=== PATIENT | male | born 1970 | race Caucasian/White ===

== ENCOUNTER 2017-05-09 13:14 | Emergency (ER) | payer OTHER ==
[2017-05-09 14:35] VITALS: BP 132/68
--- NOTE | 2017-05-09 14:41 | UC ---
Throat Pain/Nasal Neel HPI - HPI Summary HPI Summary: per nurses triage: c/o productive cough with yellow/red secretions, lungs hurt, feverish that started yesterday. - History of Current Complaint Chief Complaint: UCRespiratory Stated Complaint: FEVER/CHILLS/COUGH Time Seen by Provider: 05/09/17 14:33 Hx Obtained From: Patient Onset/Duration: Sudden Onset, Lasting Days Severity: Moderate Cough: Nonproductive Associated Signs & Symptoms: Positive: Dysphagia, Wheezing, Sinus Discomfort, Fever - Allergies/Home Medications Allergies/Adverse Reactions: Allergies Allergy/AdvReac Type Severity Reaction Status Date / Time No Known Allergies Allergy Verified 05/09/17 14:28 Home Medications: Home Medications Aspirin Low Dose CHEW TAB* [Aspirin Low Dose TAB*] 81 mg PO DAILY 05/09/17 [ History Confirmed 05/09/17] Diabetic Medication BID 05/09/17 [History] Lisinopril [Lisinopril 40 MG-] 40 mg PO DAILY 05/09/17 [History Confirmed ] Metformin HCl [Glucophage] 1,000 mg PO BID 05/09/17 [History Confirmed 05/09/17] [id number] Ethyl Esters (NF) [Lovaza (NF)] 1 gm PO BID 05/09/17 [History Confirmed 05/09/17] Pravastatin (NF) [Pravachol (NF)] 10 mg PO DAILY 05/09/17 [History Confirmed 11/17] SitaGLIPtin (NF) [Januvia (NF)] 25 mg PO DAILY 05/09/17 [History Confirmed 05/09] PMH/Surg Hx/FS Hx/Imm Hx Previously Healthy: Yes - Surgical History Surgical History: Yes Surgery Procedure, Year, and Place: hernia. foot - Family History Known Family History: Negative: Cardiac Disease, Hypertension - Social History Alcohol Use: Occasionally Substance Use Type: Marijuana Substance Use Comment - Amount & Last Used: occasional use Smoking Status (MU): Heavy Every Day Tobacco Smoker Type: Pipe Amount Used/How Often: 1/2 pack daily Review of Systems Constitutional: Fever, Chills, Fatigue Skin: Negative Eyes: Negative ENT: Sore Throat, Ear Ache, Nasal Discharge Respiratory: Shortness Of Breath, Cough Cardiovascular: Negative Gastrointestinal: Negative Genitourinary: Negative Motor: Negative Neurovascular: Negative Musculoskeletal: Arthralgia, Myalgia Neurological: Headache Is Patient Immunocompromised?: No All Other Systems Reviewed And Are Negative: Yes Physical Exam Vital Signs: Initial Vital Signs Temp 100 F 05/09/17 14:31 Pulse 90 05/09/17 14:31 Resp 20 05/09/17 14:31 BP 132/68 05/09/17 14:31 Pulse Ox 95 05/09/17 14:31 Throat Pain/Nasal Course/Dx - Course Course Of Treatment: hx obtained, exam performed ,meds reviewed, rapid flu obtained. - Differential Dx/Diagnosis Differential Diagnosis/HQI/PQRI: Otitis Media, Pharyngitis, Sinusitis, URI Discharge - Discharge Plan Condition: Stable Disposition: HOME Referrals: Katia Aguila [Primary Care Provider] -
--- NOTE | 2017-05-09 15:07 | UC ---
FLU HPI - HPI Summary HPI Summary: Started yesterday, cough, headaches, chills, bodyaches. Exposed to the flu. - History of Current Complaint Chief Complaint: UCRespiratory Stated Complaint: FEVER/CHILLS/COUGH Time Seen by Provider: 05/09/17 14:33 Hx Obtained From: Patient Onset/Duration: Sudden Onset, Lasting Days - 1, Worse Since - onset Severity Currently: Severe Severity Initially: Mild Associated Signs & Symptoms: Positive: Fever, Cough, Sore Throat, Headache Related Hx: Possible Flu/Infectious Exposure, Smoking - Risk Factors Influenza Risk Factors: Chronic Medical or Immunosuppresive Condition - Diabetes - Allergy/Home Medications Allergies/Adverse Reactions: Allergies Allergy/AdvReac Type Severity Reaction Status Date / Time No Known Allergies Allergy Verified 05/09/17 14:28 Home Medications: Home Medications Aspirin Low Dose CHEW TAB* [Aspirin Low Dose TAB*] 81 mg PO DAILY 05/09/17 [ History Confirmed 05/09/17] Diabetic Medication BID 05/09/17 [History] Lisinopril [Lisinopril 40 MG-] 40 mg PO DAILY 05/09/17 [History Confirmed ] Metformin HCl [Glucophage] 1,000 mg PO BID 05/09/17 [History Confirmed 05/09/17] Uaelv-0-Fmbm Ethyl Esters (NF) [Lovaza (NF)] 1 gm PO BID 05/09/17 [History Confirmed 05/09/17] Pravastatin (NF) [Pravachol (NF)] 10 mg PO DAILY 05/09/17 [History Confirmed 11/17] SitaGLIPtin (NF) [Januvia (NF)] 25 mg PO DAILY 05/09/17 [History Confirmed 05/09] PMH/Surg Hx/FS Hx/Imm Hx Endocrine History: Diabetes, Dyslipidemia Cardiovascular History: Hypertension - Surgical History Surgical History: Yes Surgery Procedure, Year, and Place: hernia. foot - Family History Known Family History: Positive: Cardiac Disease, Hypertension, Diabetes - Social History Occupation: Employed Full-time Lives: With Family Alcohol Use: Occasionally Substance Use Type: Marijuana Substance Use Comment - Amount & Last Used: occasional use Smoking Status (MU): Heavy Every Day Tobacco Smoker Type: Pipe Amount Used/How Often: 1/2 pack daily Review of Systems Constitutional: Fever, Chills Respiratory: Cough Musculoskeletal: Myalgia Neurological: Headache Is Patient Immunocompromised?: No All Other Systems Reviewed And Are Negative: Yes Physical Exam Triage Information Reviewed: Yes Appearance: No Pain Distress, Well-Nourished, Ill-Appearing Vital Signs: Initial Vital Signs Temp 100 F 05/09/17 14:31 Pulse 90 05/09/17 14:31 Resp 20 05/09/17 14:31 BP 132/68 05/09/17 14:31 Pulse Ox 95 05/09/17 14:31 Vital Signs Reviewed: Yes Eyes: Positive: Conjunctiva Inflamed ENT: Positive: Pharynx normal, TMs normal Neck exam: Normal Respiratory: Positive: Lungs clear Cardiovascular Exam: Normal Musculoskeletal Exam: Normal Neurological Exam: Normal Psychological Exam: Normal Skin Exam: Normal Flu Course/Dx - Differential Dx/Diagnosis Differential Diagnosis/HQI/PQRI: Influenza, RSV, Upper Respiratory Infection Provider Diagnoses: Acute Influenza Type A Discharge - Discharge Plan Condition: Stable Disposition: HOME Prescriptions: Oseltamivir CAP* [Tamiflu CAP*] 75 mg PO BID #10 cap Patient Education Materials: Influenza (ED), Oseltamivir (By mouth) Referrals: Katia Aguila [Primary Care Provider] -
== END 2017-05-09 15:31 | disposition home or self-care (01) ==
LOC: UCCORT 13:14
DX: J11.1 Influenza due to unidentified influenza virus with other respiratory manifestations (principal); E11.9 Type 2 diabetes mellitus without complications; Z79.84 Long term (current) use of oral hypoglycemic drugs; E78.5 Hyperlipidemia, unspecified; I10 Essential (primary) hypertension; Z79.82 Long term (current) use of aspirin; F12.90 Cannabis use, unspecified, uncomplicated; F17.290 Nicotine dependence, other tobacco product, uncomplicated
CPT/HCPCS: 87502; 99212; G0463

== ENCOUNTER 2017-05-21 14:08 | Emergency (ER) | payer OTHER ==
[2017-05-21 16:05] VITALS: BP 119/74
--- NOTE | 2017-05-21 16:12 | UC ---
Throat Pain/Nasal Neel HPI - HPI Summary HPI Summary: pt c/o sinus pressure and pain X 7 days. - History of Current Complaint Chief Complaint: UCRespiratory Stated Complaint: SINUS COMPLAINT Time Seen by Provider: 05/21/17 16:06 Hx Obtained From: Patient Onset/Duration: Gradual Onset, Lasting Weeks - 1, Still Present Severity: Moderate Associated Signs & Symptoms: Positive: Sinus Discomfort Related History: Smoking - Epiglottits Risk Factors Epiglottis Risk Factors: Negative - Allergies/Home Medications Allergies/Adverse Reactions: Allergies Allergy/AdvReac Type Severity Reaction Status Date / Time No Known Allergies Allergy Verified 05/09/17 14:28 Home Medications: Home Medications Glipizide [Glipizide ER] 2.5 mg PO 05/21/17 [History Confirmed 05/21/17] PMH/Surg Hx/FS Hx/Imm Hx Previously Healthy: Yes Endocrine History: Diabetes Respiratory History: COPD - Surgical History Surgical History: Yes Surgery Procedure, Year, and Place: hernia. foot - Family History Known Family History: Positive: Cardiac Disease, Hypertension, Diabetes - Social History Occupation: Employed Full-time Lives: With Family Alcohol Use: Occasionally Substance Use Type: Marijuana Substance Use Comment - Amount & Last Used: occasional use Smoking Status (MU): Heavy Every Day Tobacco Smoker Type: Cigarettes, Pipe Amount Used/How Often: 1/2 pack daily Have You Smoked in the Last Year: Yes Review of Systems Constitutional: Chills, Fatigue Skin: Negative Eyes: Negative ENT: Sinus Congestion, Sinus Pain/Tenderness Respiratory: Negative Cardiovascular: Negative Gastrointestinal: Negative Genitourinary: Negative Motor: Negative Neurovascular: Negative Musculoskeletal: Negative Neurological: Headache Psychological: Negative Is Patient Immunocompromised?: No All Other Systems Reviewed And Are Negative: Yes Physical Exam Triage Information Reviewed: Yes Appearance: Well-Appearing Vital Signs: Initial Vital Signs Temp 98.6 F 05/21/17 16:02 Pulse 75 05/21/17 16:02 Resp 20 05/21/17 16:02 BP 119/74 05/21/17 16:02 Pulse Ox 95 05/21/17 16:02 Vital Signs Reviewed: Yes Eye Exam: Normal ENT Exam: Other ENT: Positive: Nasal congestion, Sinus tenderness Neck exam: Normal Respiratory: Positive: Decreased breath sounds - bases bilateral Cardiovascular Exam: Normal Musculoskeletal Exam: Normal Neurological Exam: Normal Psychological Exam: Normal Skin Exam: Normal Throat Pain/Nasal Course/Dx - Differential Dx/Diagnosis Differential Diagnosis/HQI/PQRI: Sinusitis, URI Provider Diagnoses: sinusitis Discharge - Discharge Plan Condition: Stable Disposition: HOME Prescriptions: Amoxicillin PO (*) [Amoxicillin 875 MG (*)] 875 mg PO BID #20 tab Patient Education Materials: Sinusitis (ED) Referrals: Katia Aguila [Primary Care Provider] - If Needed
== END 2017-05-21 16:21 | disposition home or self-care (01) ==
LOC: UCCORT 14:08
DX: J32.9 Chronic sinusitis, unspecified (principal); E11.9 Type 2 diabetes mellitus without complications; Z79.4 Long term (current) use of insulin; Z72.89 Other problems related to lifestyle; F12.90 Cannabis use, unspecified, uncomplicated; Z72.0 Tobacco use
CPT/HCPCS: 99212; G0463